=== PATIENT | female | born 1965 | race Caucasian/White ===

== ENCOUNTER 2020-04-04 23:42 | Outpatient (CLI) | payer OTHER, BC | END 2020-04-04 23:43 | disposition home or self-care (01) | LOC: COV 23:42 | PROVIDERS: ATTEND Family Medicine | DX: R06.02 Shortness of breath (principal); R53.83 Other fatigue; R43.9 Unspecified disturbances of smell and taste; J34.89 Other specified disorders of nose and nasal sinuses; R11.0 Nausea; Z20.822 Contact with and (suspected) exposure to COVID-19 ==

== ENCOUNTER 2021-08-04 11:15 | Emergency (ER) | payer OTHER, BC ==
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
[2021-08-04] MEDS ORDERED: BUPIVACAINE 0.5% PF 10 ML VIAL SUBQ STA (13:37)
[2021-08-04] MEDS ORDERED: oxyCODONE 5 MG TABLET PO STA (13:51)
[2021-08-04] MEDS ORDERED: BUPIVACAINE 0.5% PF 30 ML VIAL SUBQ STA (14:07)
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
[2021-08-04 15:34] VITALS: BP 134/88
== END 2021-08-04 15:34 | disposition home or self-care (01) ==
LOC: ED 11:15
DX: S52.572A Other intraarticular fracture of lower end of left radius, initial encounter for closed fracture (principal); V19.9XXA Pedal cyclist (driver) (passenger) injured in unspecified traffic accident, initial encounter; Y93.55 Activity, bike riding
CPT/HCPCS: 25605; 73110; 99282; 99283; A9270

== ENCOUNTER 2023-05-20 18:41 | Outpatient (CLI) | payer BC | END 2023-05-20 23:59 | disposition short-term general hospital (02) | LOC: EMS 18:41 | DX: R07.9 Chest pain, unspecified (principal); R06.02 Shortness of breath; R42 Dizziness and giddiness | CPT/HCPCS: A0425; A0427 ==